=== PATIENT | male | born 1995 | race Caucasian/White ===

== ENCOUNTER 2019-08-16 18:29 | Emergency (ER) | payer BC, MEDICAID ==
[2019-08-16] MEDS ORDERED: Ondansetron 4 MG Tab.DIS PO ONE (18:30)
[2019-08-16] MEDS ORDERED: Ondansetron 4 MG/2 ML SDV IV ONE (19:37)
[2019-08-16] MEDS ORDERED: Sodium Chloride 0.9% 1,000 ML IV SCH (19:45)
[2019-08-16 20:34] LABS: ANION GAP 16.2; CHLORIDE,CL 96 mmol/L (101-111); SODIUM,NA 134 mmol/L (135-145)
[2019-08-16] MEDS ORDERED: Sodium Chloride 0.9% 1,000 ML IV ONE (20:43)
[2019-08-16] MEDS ORDERED: Oseltamivir 75 MG Cap PO ONE (21:26)
[2019-08-16] MEDS ORDERED: Ondansetron 4 MG Tab.DIS ONE (21:31)
--- NOTE | 2019-08-16 21:32 | EDM.PDOC ---
ED HPI GENERAL MEDICAL PROBLEM - General Chief Complaint: Abdominal Pain Stated Complaint: VOMITING Time Seen by Provider: 08/16/19 19:30 Source of Information: Reports: Family History Limitations: Reports: Language Barrier - History of Present Illness INITIAL COMMENTS - FREE TEXT/NARRATIVE: Patient deaf, information obtained from mother . C/o vomiting diarrhea x 2 days , weak, nauseated. Headache earlier better now. Has not kept any food down today. Unsure if fever, pale. Denies urinary c/o Abdomen Pain Score (Numeric/FACES): 10 - Related Data Allergies Allergy/AdvReac Type Severity Reaction Status Date / Time No Known Allergies Allergy Verified 08/16/19 19:15 Home Meds: Home Meds . [No Known Home Meds] 08/16/19 [History] Past Medical History - Past Health History Medical/Surgical History: Denies Medical/Surgical History - Past Surgical History HEENT Surgical History: Reports: None Social & Family History - Family History Family Medical History: Noncontributory - Tobacco Use Smoking Status *Q: Never Smoker Second Hand Smoke Exposure: Yes - Recreational Drug Use Recreational Drug Use: No ED ROS GENERAL - Review of Systems Review Of Systems: Comprehensive ROS is negative, except as noted in HPI. ED EXAM, GI/ABD - Physical Exam Exam: See Below Exam Limited By: No Limitations General Appearance: Alert, No Apparent Distress Ears: Normal External Exam, Hearing Loss Nose: Normal Inspection Throat/Mouth: Normal Inspection Head: Atraumatic, Normocephalic Neck: Normal Inspection Respiratory/Chest: Lungs Clear, Normal Breath Sounds Cardiovascular: Normal Peripheral Pulses, Regular Rate, Rhythm, Tachycardia GI/Abdominal Exam: Normal Bowel Sounds, Soft, Tender (epigastric) Extremities: Normal Inspection, Normal Range of Motion Neurological: Alert, Oriented, Inattentive, Sensory/Motor Deficit (playing game on ipad) Skin Exam: Warm, Dry, Intact, Pallor Course - Vital Signs Last Recorded V/S: Last Vital Signs Temp 99.8 F 08/16/19 19:10 Pulse 110 H 08/16/19 19:10 Resp 24 H 08/16/19 19:10 BP 137/86 08/16/19 19:10 Pulse Ox 96 08/16/19 19:10 - Orders/Labs/Meds Labs: Laboratory Tests 08/16/19 08/16/19 08/16/19 Range/Units 20:08 20:08 20:08 WBC 5.9 (5.0-10.0) 10^3/uL RBC 6.03 (4.6-6.2) 10^6/uL Hgb 17.8 (14.0-18.0) g/dL Hct 49.0 (40.0-54.0) % MCV 81.3 (80-100) fL MCH 29.5 (27.0-34.0) pg MCHC 36.3 H (33.0-35.0) g/dL Plt Count 220 (150-450) 10^3/uL Neut % (Auto) 67.3 (42.2-75.2) % Lymph % (Auto) 15.9 L (20.5-50.1) % [place] % (Auto) 16.6 H (2-8) % Eos % (Auto) 0.0 L (1.0-3.0) % Baso % (Auto) 0.2 (0.0-1.0) % Sodium 134 L (135-145) mmol/L Potassium 4.2 (3.6-5.0) mmol/L Chloride 96 L (101-111) mmol/L Carbon Dioxide 26.0 (21.0-31.0) mmol/L Anion Gap 16.2 BUN 16 (7-18) mg/dL Creatinine 1.1 (0.6-1.3) mg/dL Est Cr Clr Drug Dosing 100.85 mL/min Estimated GFR (MDRD) > 60 BUN/Creatinine Ratio 14.54 Glucose 96 (74-105) mg/dL Lactic Acid 0.9 (0.5-2.0) mmol/L Calcium 9.1 (8.4-10.2) mg/dl Total Bilirubin 1.0 (0.2-1.0) mg/dL AST 23 (10-42) IU/L ALT 21 (10-60) IU/L Alkaline Phosphatase 64 (42-121) IU/L Total Protein 8.0 (6.7-8.2) g/dl Albumin 4.5 (3.2-5.5) g/dl Globulin 3.5 Albumin/Globulin Ratio 1.29 Amylase 46 (28-100) U/L Lipase 29 (22-51) U/L Urine Color (YELLOW) Urine Appearance (CLEAR) Urine pH (5.0-9.0) Ur Specific [place] (1.005-1.030) Urine Protein (NEGATIVE) Urine Glucose (UA) (NEGATIVE) Urine Ketones (NEGATIVE) Urine Occult Blood (NEGATIVE) Urine Nitrite (NEGATIVE) Urine Bilirubin (NEGATIVE) Urine Urobilinogen (0.2-1.0) mg/dL Ur Leukocyte Esterase (NEGATIVE) 08/16/19 Range/Units 21:56 WBC (5.0-10.0) 10^3/uL RBC (4.6-6.2) 10^6/uL Hgb (14.0-18.0) g/dL Hct (40.0-54.0) % MCV (80-100) fL MCH (27.0-34.0) pg MCHC (33.0-35.0) g/dL Plt Count (150-450) 10^3/uL Neut % (Auto) (42.2-75.2) % Lymph % (Auto) (20.5-50.1) % [place] % (Auto) (2-8) % Eos % (Auto) (1.0-3.0) % Baso % (Auto) (0.0-1.0) % Sodium (135-145) mmol/L Potassium (3.6-5.0) mmol/L Chloride (101-111) mmol/L Carbon Dioxide (21.0-31.0) mmol/L Anion Gap BUN (7-18) mg/dL Creatinine (0.6-1.3) mg/dL Est Cr Clr Drug Dosing mL/min Estimated GFR (MDRD) BUN/Creatinine Ratio Glucose (74-105) mg/dL Lactic Acid (0.5-2.0) mmol/L Calcium (8.4-10.2) mg/dl Total Bilirubin (0.2-1.0) mg/dL AST (10-42) IU/L ALT (10-60) IU/L Alkaline Phosphatase (42-121) IU/L Total Protein (6.7-8.2) g/dl Albumin (3.2-5.5) g/dl Globulin Albumin/Globulin Ratio Amylase (28-100) U/L Lipase (22-51) U/L Urine Color Yellow (YELLOW) Urine Appearance Clear (CLEAR) Urine pH 5.5 (5.0-9.0) Ur Specific [place] >= 1.030 (1.005-1.030) Urine Protein Negative (NEGATIVE) Urine Glucose (UA) Negative (NEGATIVE) Urine Ketones 15 H (NEGATIVE) Urine Occult Blood Negative (NEGATIVE) Urine Nitrite Negative (NEGATIVE) Urine Bilirubin Negative (NEGATIVE) Urine Urobilinogen 0.2 (0.2-1.0) mg/dL Ur Leukocyte Esterase Negative (NEGATIVE) Meds: Medications Discontinued Medications Generic Name Dose Route Start Last Admin Trade Name Norman PRN Reason Stop Dose Admin Sodium Chloride 1,000 mls @ 999 mls/hr 08/16/19 19:45 08/16/19 20:13 Normal Saline IV 08/20/19 19:38 999 mls/hr ASDIRECTED LOU Administration Sodium Chloride 1,000 mls @ 999 mls/hr 08/16/19 20:43 08/16/19 20:46 Normal Saline IV 08/16/19 21:43 999 mls/hr .BOLUS ONE Administration Ondansetron HCl 4 mg 08/16/19 19:37 08/16/19 20:15 Zofran IV 08/16/19 19:38 4 mg ONETIME ONE Administration Ondansetron HCl Confirm 08/16/19 21:31 08/16/19 21:37 Zofran Odt Administered 08/16/19 21:32 Not Given Dose 8 mg .ROUTE .STK-MED ONE Oseltamivir Phosphate 75 mg 08/16/19 21:26 08/16/19 21:37 Tamiflu PO 08/16/19 21:27 75 mg ONETIME ONE Administration Departure - Departure Time of Disposition: 21:29 Disposition: Home, Self-Care 01 Condition: Good Clinical Impression: Influenza A Vomiting Qualifiers: Vomiting type: bilious vomiting Nausea presence: with nausea Qualified Code(s) : R11.14 - Bilious vomiting - Discharge Information *PRESCRIPTION DRUG MONITORING PROGRAM REVIEWED*: No *COPY OF PRESCRIPTION DRUG MONITORING REPORT IN PATIENT STEPHANE: No Instructions: Influenza, Adult, [id number] Referrals: Coco Campos MD [Primary Care Provider] - Forms: ED Department Discharge Additional Instructions: light diet as tolerated advance slowly push fluids zofran 4mg ODT one every 8 hours as needed for nausea and vomiting Tamiflu 75 one twice daily for 5 days off work for one week follow up if worsening symptoms, Sepsis Event Note - Evaluation Sepsis Screening Result: No Definite Risk - Focused Exam Vital Signs: Vital Signs Temp Pulse Resp BP Pulse Ox 08/16/19 19:10 99.8 F 110 H 24 H 137/86 96 Date Exam was Performed: 08/17/19 Time Exam was Performed: 04:51
== END 2019-08-16 21:40 | disposition home or self-care (01) ==
LOC: DL.ED 18:29
DX: R10.9 Unspecified abdominal pain (principal)
CPT/HCPCS: 36415; 80053; 81003; 82150; 83605; 83690; 85025; 87804; 96361; 96374; 99284; A9270; J2405; J7030

== ENCOUNTER 2023-04-19 17:26 | Emergency (ER) | payer MEDICARE, MEDICAID | END 2023-04-19 18:32 | disposition home or self-care (01) | LOC: DL.ED 17:26 | DX: S99.911A Unspecified injury of right ankle, initial encounter (principal); Z91.018 Allergy to other foods; X50.9XXA Other and unspecified overexertion or strenuous movements or postures, initial encounter; Y93.01 Activity, walking, marching and hiking | CPT/HCPCS: 73600-RT; 99282; 99283 ==

== ENCOUNTER 2025-06-23 14:15 | Emergency (ER) | payer MEDICAID, MEDICARE ==
[2025-06-23] MEDS: Diphtheria,Pertussis(Acell),Tetanus Vaccine 0.5 ML Syringe IM ONE (15:00)
[2025-06-23] MEDS: Bacitracin Oint 1 GM U/D Packet TOP ONE (15:02)
== END 2025-06-23 15:14 | disposition home or self-care (01) ==
LOC: DL.ED 14:15
DX: S71.112A Laceration without foreign body, left thigh, initial encounter (principal); Z23 Encounter for immunization; Z91.018 Allergy to other foods; W26.8XXA Contact with other sharp object(s), not elsewhere classified, initial encounter
CPT/HCPCS: 12002; 90471; 90715; 99282; A9270; J2003